=== PATIENT | male | born 1965 | race Caucasian/White ===

== ENCOUNTER → 2016-06-25 | Outpatient (CLI) | payer OTHER ==
[~2016-06-25] VITALS: Ht 165.1 cm; Wt 87.2 kg
[~2016-06-25] MED LIST: FLUT0.15 NAE; GLUCTAB7 PO; HYDR25TA4 PO; MAGNTAB4 PO; MULT-506 PO; OMEG10007 PO; OXYC-57 PO; TAMS0.4C38 PO; ZCRT/40 PO
[2016-06-25 13:23] VITALS: BP 144/85; PULSE 74; Ht 165.1 cm; Wt 87.2 kg
== END | disposition home or self-care (01) ==
LOC: C.NEUR 12:47
PROVIDERS: ATTEND Internal Medicine Pulmonary Disease
DX: G47.30 Sleep apnea, unspecified (principal)

== ENCOUNTER → 2016-07-04 | Outpatient (CLI) | payer OTHER ==
[2016-07-04 12:55] LABS: ALT/SGPT 38 U/L (12-78); BLOOD UREA NITROGEN 14 mg/dl (7-18); BUN/CREATININE RATIO 14.5 (10-20); CALCIUM 9.3 mg/dl (8.5-10.1); CARBON DIOXIDE 27 mmol/L (21-32); CHLORIDE 102 mmol/L (98-107); CHOLESTEROL 197 mg/dl (0-200); CREATININE 0.98 mg/dl (0.60-1.40); GLUCOSE 87 mg/dl (70-99); POTASSIUM 3.4 mmol/L (3.5-5.1); SODIUM 139 mmol/L (136-145); TRIGLYCERIDES 84 mg/dl (0-150); VERY LOW DENSITY LIPOPROT CALC 17 mg/dl
[2016-07-04 12:58] LABS: ALB/GLOB RATIO 1.1 (0.9-2); ALKALINE PHOSPHATASE 81 U/L (45-117); AST/SGOT 20 U/L (15-37); CHOLESTEROL/HDL RATIO 2.7; HDL CHOLESTEROL 72 mg/dl; LDL CHOLESTEROL CALCULATED 108 mg/dl
== END | disposition home or self-care (01) ==
LOC: C.LABPVFM 07:48
PROVIDERS: ATTEND Family Medicine
DX: E78.5 Hyperlipidemia, unspecified (principal); I10 Essential (primary) hypertension

== ENCOUNTER → 2016-12-31 | Outpatient (CLI) | payer OTHER ==
[~2016-12-31] VITALS: Ht 162.6 cm; Wt 89.2 kg
[2016-12-31 14:12] VITALS: BP 143/76; PULSE 82; Ht 162.6 cm; Wt 89.2 kg
== END | disposition home or self-care (01) ==
LOC: C.NEUR 12:51
PROVIDERS: ATTEND Internal Medicine Pulmonary Disease
DX: G47.30 Sleep apnea, unspecified (principal)

== ENCOUNTER → 2017-01-06 | Outpatient (CLI) | payer OTHER ==
[2017-01-06 13:25] LABS: BLOOD UREA NITROGEN 15 mg/dl (7-18); BUN/CREATININE RATIO 15.5 (10-20); CARBON DIOXIDE 25 mmol/L (21-32); CHLORIDE 107 mmol/L (98-107); CREATININE 0.98 mg/dl (0.60-1.40); GLUCOSE 94 mg/dl (70-99); POTASSIUM 3.5 mmol/L (3.5-5.1); SODIUM 141 mmol/L (136-145)
== END | disposition home or self-care (01) ==
LOC: C.LABPVFM 08:33
PROVIDERS: ATTEND Family Medicine
DX: I10 Essential (primary) hypertension (principal)

== ENCOUNTER → 2017-01-14 | Outpatient (CLI) | payer OTHER ==
--- NOTE | 2017-01-14 08:27 | DIAGNOSTIC IMAGING REPORT ---
EXTREMITY NONVASCULAR LIMITED CLINICAL HISTORY: D17.9 Lipoma Left axillary /shoulder soft tissue mass left axilla COMPARISON STUDY: None. FINDINGS: Real-time sonographic imaging of the left axilla was performed. There is a 10 x 9 x 3.7 cm predominantly hypoechoic subcutaneous lesion within the left axilla. This has the typical appearance of fat and favors a lipoma. No fluid collections or enlarged lymph nodes. IMPRESSION: A 10 x 9 x 3.7 cm fat-containing lesion within the left axilla. This likely represents a lipoma. However, if this is increasing in size or is painful considered surgical resection to exclude the less likely possibility of a liposarcoma. Electronically signed by: Kevin Marc M.D. 01/14/2017 8:26 AM Dictated Date/Time: 01/14/2017 8:20 AM
[2017-01-14 09:56] LABS: BASO % 0.8 %; BASO ABS # 0.04 K/uL (0-0.2); COMPLETE YES; EOS % 2.5 %; HEMATOCRIT 40.1 % (42-52); IG% 0.2 %; LYMPH % 37.3 %; LYMPH ABS # 1.81 K/uL (1.2-3.4); MEAN CELL VOLUME 88.3 fL (80-100); MEAN CORPUSCULAR HEMOGLOBIN 30.6 pg (25-34); MEAN CORPUSCULAR HGB CONC 34.7 g/dl (32-36); MEAN PLATELET VOLUME 9.8 fL (7.4-10.4); MONO % 13.6 %; NEUT % 45.6 %; PLATELET COUNT 265 K/uL (130-400); RED BLOOD COUNT 4.54 M/uL (4.7-6.1); WHITE BLOOD COUNT 4.85 K/uL (4.8-10.8)
== END | disposition home or self-care (01) ==
LOC: C.ULTR 07:48
PROVIDERS: ATTEND Surgery
DX: Z01.810 Encounter for preprocedural cardiovascular examination (principal); Z01.812 Encounter for preprocedural laboratory examination; D17.9 Benign lipomatous neoplasm, unspecified

== ENCOUNTER → 2017-01-28 | Day surgery (SDC) | payer OTHER ==
[2017-01-21 13:02] VITALS: Ht 161.3 cm; Wt 89.1 kg
[~2017-01-28] VITALS: Ht 161.3 cm; Wt 89.1 kg
[~2017-01-28] MED LIST changes: +ATROPINE SULFATE 0.1 MG/ML 5ML SYR IV PRN; +BUPIVACAINE 0.5 % 5 MG/1 ML MPF 30ML VIAL ONE; +CEFAZOLIN SOD 1 GM VIAL ONE; +DEXAMETHASONE SOD INJ 4 MG/ML VIAL ONE; +EpHEDrine SULFATE INJ 50 MG/ML AMP IV PRN; +FENTANYL CITRATE INJ 50 MCG/1 ML 2 ML VIAL IV PRN; +FENTANYL CITRATE INJ 50 MCG/1 ML 2 ML VIAL ONE; +FLUMAZENIL 0.1 MG/1 ML 10 ML VIAL IV PRN; +LABETALOL HCL IV 5 MG/ML 20ML IV PRN; +LACTATED RINGER'S 1000ML 1,000 ML IV SCH; +LIDOCAINE HCL 2% 2 ML VIAL (20MG/ML) ONE; +MIDAZOLAM HCL 1 MG/ML 2ML VIAL ONE; +NALOXONE HCL 0.4 MG/1 ML VIAL/CARP IV PRN; +ONDANSETRON INJ 2 MG/ML 2 ML VIAL IV PRN; +ONDANSETRON INJ 2 MG/ML 2 ML VIAL ONE; +OXYCODONE/ACETAMINOPHEN 5-325 TAB PO PRN; +PROMETHAZINE HCL INJ 12.5 MG in SODIUM CHLORIDE 0.9% 50ML 50 ML IV PRN; +PROPOFOL IV EMULSION 10 MG/ML 20 ML VIAL IV ONE; +SODIUM CHLORIDE 0.9% 1000ML 1,000 ML IV SCH; -TAMS0.4C38 PO
--- NOTE | 2017-01-28 06:58 | History & Physical Bridge - SC ---
H&P Re-Evaluation Bridge Note: I have examined the patient, reviewed the History & Physical and in the interval since the performance of the History & Physical I have noted the following changes of clinical significance: No changes noted
--- NOTE | 2017-01-28 07:49 | [facility] Post Operative Brief Note ---
Immediate Operative Summary Operative Date Jan 28, 2017. Pre-Operative Diagnosis Left Axillary Soft Tissue Mass Post-Operative Diagnosis same Procedure(s) Performed Left Axillary Soft Tissue Mass Excision Surgeon Dr. Coleen Richardson Ciaio Counter Molder Surgeon(s) Chandni Butler PA-C Estimated Blood Loss 2cc Findings [id number] soft tissue mass excised, likely lipoma Specimens A. Left Axillary Mass Drains FALLON drain left axilla Anesthesia LMA Complication(s) None Disposition Recovery Room / PACU
--- NOTE | 2017-01-28 08:02 | [facility] Operative Report ---
Operative Report Operative Date Jan 28, 2017. Pre-Operative Diagnosis Left Axillary Soft Tissue Mass Post-Operative Diagnosis same Procedure(s) Performed Left Axillary Soft Tissue Mass Excision Surgeon Dr. Coleen Richardson Furnace Clerk Surgeon(s) Chandni Butler PA-C Estimated Blood Loss 2cc Findings [id number] soft tissue mass excised, likely lipoma Specimens A. Left Axillary Mass Drains F[place]ON drain left axilla Anesthesia LMA Complication(s) None Disposition Recovery Room / PACU Implants None Indications 52 year old male with large left axillary soft tissue mass, likely lipoma, plan for excision. Risks discussed, all questions answered, and the patient agrees to proceed with surgery as planned. Description of Procedure The patient was appropriately identified, consented, and taken to the operating room and placed in the supine position. General anesthesia was induced. A bump was placed under the left shoulder. Pre operative antibiotics were adminstered. A safety belt and SCD's were placed. The left axilla was prepped and draped in the standard sterile fashion. A surgical timeout was performed. Local anesthetic was injected. A transverse incision was made overlying the mass with knife. This was deepened down through the subcutaneous tissue with electrocautery. The soft tissue mass was circumferentially dissected, excised, and passed off the table as specimen. It appeared to be a lipoma and measured 10x8x3 cm. The wound was irrigated and hemostasis achieved within the wound. A medium round drain was placed and secured to the skin with 3-0 nylon suture. The skin was closed with interrupted 3-0 vicryl deep dermal sutures followed by 4-0 monocryl running subcuticular sutures. Dermabond was placed over the incision. The patient was extubated and taken to the recovery area where he recovered without incident. All sponge, instrument, and needle counts were correct. The patient tolerated the procedure well. I attest to the content of the Intraoperative Record and any orders documented therein. Any exceptions are noted below.
--- NOTE | 2017-01-28 08:11 | Discharge Instructions-SurgCtr ---
Discharge Instructions Date of Service Jan 28, 2017. Visit Reason for Visit: Lipoma Left Axilla Discharge Discharge Diagnosis / Problem: Lipoma Left Axilla Discharge Goals Goal(s): Decrease discomfort, Improve function Activity Recommendations Activity Limitations: as noted below Lifting Limitations: no more than 10 pounds Exercise/Sports Limitations: until after follow-up appointment May Resume Sexual Activity: after follow-up appointment Shower/Bathe: tomorrow Driving or Machine Use: resume 1 day after discharge Anesthesia . Post Anesthesia Instructions: If you have had General Anesthesia or IV Sedation: * Do not drive today. * Resume driving when surgeon permits. * Do not make important decisions or sign legal documents today. * Call surgeon for: 1. Temperature elevations greater than 101 degrees F. 2. Uncontrollable pain. 3. Excessive bleeding. 4. Persistent nausea and vomiting. 5. Medication intolerance (nausea, vomiting or rash). * For nausea and vomiting use only clear liquids such as: tea, soda, bouillon until nausea subsides, then gradually increase diet as tolerated. * If you have any concerns or questions, call your surgeon's office. If physician is unavailable and it is an emergency, call 911 or go to the nearest emergency room. . Instructions / Follow-Up Instructions / Follow-Up Please follow-up in the office on 01/31/2017 for drain removal. Please call the office at [phone] to make an appointment if you do not have one already. Please call the office with any questions or concerns. Diet Recommendations Home Diet: no limitations, resume previous diet Procedures Procedures Performed: Left Axillary Soft Tissue Mass Excision Pending Studies Studies pending at discharge: yes List of pending studies: Pathology report. Medical Emergencies . Who to Call and When: Medical Emergencies: If at any time you feel your situation is an emergency, please call 911 immediately. . Non-Emergent Contact Non-Emergency issues call your: Primary Care Provider, Surgeon Call Non-Emergent contact if: temperature is above 101.5, your pain is not controlled, wound has increased drainage, wound has increased redness . . "Provider Documentation" section prepared by Chandni Butler. . [place] Drug Monitoring Program Search Results: patient reviewed within database, no issues identified
[2017-01-28 08:57] VITALS: TEMP 36.4
--- NOTE | 2017-01-28 09:02 | Anesthesia Progress Nt - [facility] ---
Anesthesia Post Op Note Date & Time Jan 28, 2017 at 09:01 Vital Signs Pain Intensity: 0 Vital Signs Past 12 Hours Date Time Temp Pulse Resp B/P (MAP) Pulse Ox O2 Delivery O2 Flow Rate FiO2 01/28/17 08:57 36.4 59 20 134/83 (100) 98 Room Air 01/28/17 08:42 36.4 58 20 123/83 98 Room Air 01/28/17 08:37 64 13 01/28/17 08:37 64 13 99 01/28/17 08:36 134/76 01/28/17 08:32 68 17 01/28/17 08:32 68 17 98 01/28/17 08:31 133/92 01/28/17 08:27 75 24 01/28/17 08:27 78 24 100 01/28/17 08:26 131/91 01/28/17 08:22 64 19 100 01/28/17 08:22 64 19 01/28/17 08:21 122/83 01/28/17 08:17 67 18 100 01/28/17 08:17 68 18 01/28/17 08:16 133/90 01/28/17 08:12 62 14 100 01/28/17 08:12 61 14 01/28/17 08:10 131/95 01/28/17 08:07 67 01/28/17 08:07 67 100 01/28/17 08:06 71 134/92 100 01/28/17 08:06 71 01/28/17 08:06 36.7 67 20 134/92 100 Mask 6 01/28/17 06:24 36.6 63 16 114/87 (96) 97 Room Air Notes Mental Status: alert / awake / arousable, participated in evaluation Pt Amnestic to Procedure: Yes Nausea / Vomiting: adequately controlled Pain: adequately controlled Airway Patency, RR, SpO2: stable & adequate BP & HR: stable & adequate Hydration State: stable & adequate Anesthetic Complications: no major complications apparent
[2017-01-28 09:45] VITALS: BP 118/76; PULSE 64; O2SAT 98
== END | disposition home or self-care (01) ==
LOC: X.SURG 06:12
PROVIDERS: ATTEND Surgery
DX: D17.79 Benign lipomatous neoplasm of other sites (principal); R07.89 Other chest pain; I10 Essential (primary) hypertension; R60.0 Localized edema; G47.30 Sleep apnea, unspecified

== ENCOUNTER → 2017-10-07 | Outpatient (CLI) | payer OTHER ==
[~2017-10-07] MED LIST changes: -ATROPINE SULFATE 0.1 MG/ML 5ML SYR IV PRN; -BUPIVACAINE 0.5 % 5 MG/1 ML MPF 30ML VIAL ONE; -CEFAZOLIN SOD 1 GM VIAL ONE; -DEXAMETHASONE SOD INJ 4 MG/ML VIAL ONE; -EpHEDrine SULFATE INJ 50 MG/ML AMP IV PRN; -FENTANYL CITRATE INJ 50 MCG/1 ML 2 ML VIAL IV PRN; -FENTANYL CITRATE INJ 50 MCG/1 ML 2 ML VIAL ONE; -FLUMAZENIL 0.1 MG/1 ML 10 ML VIAL IV PRN; -LABETALOL HCL IV 5 MG/ML 20ML IV PRN; -LACTATED RINGER'S 1000ML 1,000 ML IV SCH; -LIDOCAINE HCL 2% 2 ML VIAL (20MG/ML) ONE; -MIDAZOLAM HCL 1 MG/ML 2ML VIAL ONE; -NALOXONE HCL 0.4 MG/1 ML VIAL/CARP IV PRN; -ONDANSETRON INJ 2 MG/ML 2 ML VIAL IV PRN; -ONDANSETRON INJ 2 MG/ML 2 ML VIAL ONE; -OXYC-57 PO; -OXYCODONE/ACETAMINOPHEN 5-325 TAB PO PRN; -PROMETHAZINE HCL INJ 12.5 MG in SODIUM CHLORIDE 0.9% 50ML 50 ML IV PRN; -PROPOFOL IV EMULSION 10 MG/ML 20 ML VIAL IV ONE; -SODIUM CHLORIDE 0.9% 1000ML 1,000 ML IV SCH
[2017-10-07 13:31] LABS: ALBUMIN 3.8 gm/dl (3.4-5.0); ALKALINE PHOSPHATASE 77 U/L (45-117); ALT/SGPT 50 U/L (12-78); AST/SGOT 35 U/L (15-37); BLOOD UREA NITROGEN 14 mg/dl (7-18); CALCIUM 8.6 mg/dl (8.5-10.1); CARBON DIOXIDE 28 mmol/L (21-32); CHOLESTEROL 196 mg/dl (0-200); CREATININE 0.91 mg/dl (0.60-1.40); GLUCOSE 92 mg/dl (70-99); LDL CHOLESTEROL CALCULATED 129 mg/dl; POTASSIUM 3.8 mmol/L (3.5-5.1); SODIUM 141 mmol/L (136-145); TOTAL PROTEIN 7.2 gm/dl (6.4-8.2)
== END | disposition home or self-care (01) ==
LOC: C.LABPVFM 07:19
PROVIDERS: ATTEND Family Medicine
DX: G47.30 Sleep apnea, unspecified (principal)